=== PATIENT | male | born 1970 | race Caucasian/White ===

== ENCOUNTER → 2017-05-16 | Outpatient (CLI) | payer OTHER ==
[~2017-05-16] MED LIST: None per pt
[2017-05-16 16:27] LABS: HEMATOCRIT 48.4 % (39.2-51.8); HEMOGLOBIN 16.5 g/dL (13.7-18.0); WHITE BLOOD COUNT 7.6 x10^3/uL (3.4-10)
[2017-05-16 16:42] LABS: BLOOD UREA NITROGEN 18 mg/dL (7-18)
[2017-05-16 16:45] LABS: ASPARTATE AMINO TRANSFERASE 31 U/L (15-37)
== END | disposition home or self-care (01) ==
LOC: STAR 15:11 → MERGE 16:00
PROVIDERS: ATTEND Orthopaedic Surgery Orthopaedic Surgery of the Spine
DX: Z01.818 Encounter for other preprocedural examination (principal); M43.16 Spondylolisthesis, lumbar region; R79.1 Abnormal coagulation profile
CPT/HCPCS: 36415; 71020; 80053; 81003; 85025; 85610; 85730; 93005

== ENCOUNTER 2017-05-22 05:36 | Inpatient (IN) | payer OTHER ==
[~2017-05-22] VITALS: Ht 162.6 cm; Wt 100.0 kg
[2017-05-22] MEDS ORDERED: LACTATED RINGERS 1,000 ML IV SCH (06:13)
[2017-05-22 06:14] VITALS: BP 135/99
[2017-05-22] MEDS ORDERED: BUPIVACAINE/PF 0.25% ONE (06:55)
[2017-05-22] MEDS ORDERED: LIDOCAINE/PF 0.5% ,50ML ONE (06:55)
[2017-05-22] MEDS ORDERED: EPINEPHRINE 1 MG/ML, 1ML ONE (06:56)
[2017-05-22] MEDS ORDERED: THROMBIN 5,000 UNIT VIAL TP ONE ×3 (06:56→08:31)
[2017-05-22] MEDS ORDERED: VANCOMYCIN 1,000 MG ONE (06:56)
[2017-05-22] MEDS ORDERED: FENTANYL PF 250 MCG/5ML ONE (06:59)
[2017-05-22] MEDS ORDERED: MIDAZOLAM 1 MG/ML, 2ML ONE (06:59)
[2017-05-22] MEDS ORDERED: LIDOCAINE 0.5%-EPI 1:200K, 50ML INFIL ONE (08:42)
[2017-05-22] MEDS ORDERED: VANCOMYCIN 1,000 MG IM ONE ×2 (08:43→08:44)
[2017-05-22] MEDS ORDERED: BUPIVACAINE/PF-EPI 0.25% 1:200K INFIL ONE (08:43)
[2017-05-22] MEDS ORDERED: ROCURONIUM 10 MG/ML,10ML ONE (10:57)
[2017-05-22] MEDS ORDERED: GLYCOPYRROLATE 0.2MG/1ML, 5ML ONE (10:57)
[2017-05-22] MEDS ORDERED: PROPOFOL 10 MG/ML, 20ML ONE (10:57)
[2017-05-22] MEDS ORDERED: ONDANSETRON 2MG/ML, 2ML ONE ×2 (10:57→12:49)
[2017-05-22] MEDS ORDERED: CEFAZOLIN 1,000 MG ONE (10:57)
[2017-05-22] MEDS ORDERED: DEXAMETHASONE 4 MG/ML, 1ML ONE (10:57)
[2017-05-22] MEDS ORDERED: NEOSTIGMINE 1 MG/ML, 10ML ONE (10:57)
[2017-05-22] MEDS ORDERED: SUCCINYLCHOLINE 20 MG/ML, 10ML ONE (10:57)
[2017-05-22] MEDS ORDERED: LORazepam 2 MG/ML, 1ML IVPush PRN (11:30)
[2017-05-22] MEDS ORDERED: PROMETHAZINE 25 MG/ML, 1ML IV PRN (11:30)
[2017-05-22] MEDS ORDERED: MEPERIDINE/PF 25MG/0.5ML IVPush PRN (11:30)
[2017-05-22] MEDS ORDERED: HYDROmorphone 1 MG/ML, 1ML IV PRN (11:30)
[2017-05-22] MEDS ORDERED: FENTANYL PF 100 MCG/2ML IV PRN (11:30)
[2017-05-22] MEDS ORDERED: hydrALAzine 20 MG/ML, 1ML IV PRN (11:30)
[2017-05-22] MEDS ORDERED: METOPROLOL 1 MG/ML, 5ML IV PRN (11:30)
[2017-05-22] MEDS ORDERED: ALBUTEROL SULFATE 2.5 MG/3 ML NPPB PRN (11:30)
[2017-05-22] MEDS ORDERED: OXYcodone 5 MG/5 ML ORAL.SOL UDC PO PRN (11:30)
[2017-05-22] MEDS ORDERED: ACETAMINOPHEN 325 MG TABLET PO PRN (11:30)
[2017-05-22] MEDS ORDERED: ACETAMINOPHEN 650 MG/20.3 ML UDC ONE (12:05)
[2017-05-22] MEDS ORDERED: OXYcodone 5 MG/5 ML ORAL.SOL UDC ONE (12:05)
[2017-05-22] MEDS ORDERED: FENTANYL PF 100 MCG/2ML ONE (12:15)
[2017-05-22] MEDS ORDERED: ONDANSETRON 2MG/ML, 2ML IVPush PRN (13:00)
[2017-05-22 14:15] VITALS: BP 117/73
[2017-05-22] MEDS ORDERED: morphine SULFATE 10 MG/ML, 1ML IV PRN (15:00)
[2017-05-22] MEDS ORDERED: HYDROcodone/APAP 10/325 MG TABLET PO PRN (15:00)
[2017-05-22] MEDS ORDERED: ONDANSETRON 2MG/ML, 2ML IV PRN (15:00)
[2017-05-22] MEDS ORDERED: PROMETHAZINE 25 MG/ML, 1ML IM PRN (15:00)
[2017-05-22] MEDS ORDERED: DIAZEPAM 5 MG/ML, 2ML IV PRN (15:00)
[2017-05-22] MEDS ORDERED: METHOCARBAMOL 1,000 MG in DEXTROSE 5% 100 ML IV ONE (15:00)
[2017-05-22] MEDS ORDERED: MAGNESIUM HYDROXIDE 8%, 30ML UDC PO PRN (15:00)
[2017-05-22] MEDS ORDERED: DIPHENHYDRAMINE 50 MG/ML, 1ML IVPush PRN (15:00)
[2017-05-22] MEDS ORDERED: DIAZEPAM 5 MG TABLET PO PRN (15:00)
[2017-05-22] MEDS ORDERED: BISACODYL 10 MG SUPP PR PRN (15:00)
[2017-05-22] MEDS ORDERED: LABETALOL 5MG/ML, 20ML IV PRN (15:00)
[2017-05-22] MEDS ORDERED: HYDROcodone/APAP 5/325 TABLET PO PRN (15:00)
[2017-05-22] MEDS: CEFAZOLIN PMX 2GM/50ML 50 ML IVPB SCH (17:08)
[2017-05-22] MEDS: D5%-0.9% NACL+KCL 20MEQ 1,000 ML IV SCH (17:08)
[2017-05-22 20:10] VITALS: BP 131/81
[2017-05-22] MEDS: METHOCARBAMOL 750 MG in DEXTROSE 5% 100 ML IV SCH (23:44)
[2017-05-23 00:35] VITALS: BP 108/54
[2017-05-23] MEDS: CEFAZOLIN PMX 2GM/50ML 50 ML IVPB SCH ×3 (00:41→17:59)
[2017-05-23] MEDS: D5%-0.9% NACL+KCL 20MEQ 1,000 ML IV SCH (01:00)
[2017-05-23 03:14] VITALS: BP 112/59
[2017-05-23 05:39] LABS: HEMATOCRIT 40.4 % (39.2-51.8); HEMOGLOBIN 13.8 g/dL (13.7-18.0); WHITE BLOOD COUNT 10.7 x10^3/uL (3.4-10)
[2017-05-23 05:49] LABS: BLOOD UREA NITROGEN 16 mg/dL (7-18)
[2017-05-23] MEDS: METHOCARBAMOL 750 MG in DEXTROSE 5% 100 ML IV SCH (07:40)
[2017-05-23 07:44] VITALS: BP 129/83
[2017-05-23] MEDS: SENNA/DOCUSATE TABLET PO SCH (09:41)
[2017-05-23] MEDS ORDERED: ACETAMINOPHEN 500 MG TABLET PO SCH (11:00)
[2017-05-23] MEDS: OXYcodone IR 5MG TABLET PO PRN ×3 (11:38→22:14)
[2017-05-23] MEDS: ACETAMINOPHEN 500 MG TABLET PO SCH ×2 (13:42→21:11)
[2017-05-23] MEDS: METHOCARBAMOL 750 MG TABLET PO SCH ×2 (13:42→21:11)
[2017-05-23 15:38] VITALS: BP 116/74
[2017-05-23 18:31] VITALS: BP 123/75
[2017-05-24] MEDS: CEFAZOLIN PMX 2GM/50ML 50 ML IVPB SCH ×2 (02:03→09:08)
[2017-05-24] MEDS: METHOCARBAMOL 750 MG TABLET PO SCH ×3 (02:03→14:00)
[2017-05-24] MEDS: ACETAMINOPHEN 500 MG TABLET PO SCH ×3 (02:03→14:00)
[2017-05-24 02:49] VITALS: BP 111/72
[2017-05-24] MEDS: OXYcodone IR 5MG TABLET PO PRN ×2 (05:17→09:15)
[2017-05-24 05:40] LABS: HEMATOCRIT 41.2 % (39.2-51.8); HEMOGLOBIN 14.1 g/dL (13.7-18.0); WHITE BLOOD COUNT 8.8 x10^3/uL (3.4-10)
[2017-05-24 05:49] LABS: BLOOD UREA NITROGEN 14 mg/dL (7-18)
[2017-05-24] MEDS ORDERED: MAGNESIUM HYDROXIDE 8%, 30ML UDC PO SCH (09:00)
[2017-05-24] MEDS: SENNA/DOCUSATE TABLET PO SCH (09:08)
[2017-05-24 09:18] VITALS: BP 114/70
[2017-05-24] MEDS ORDERED: KETOROLAC 30 MG/1 ML IV ONE (11:45)
[2017-05-24 14:40] VITALS: BP 132/77
[2017-05-24] MEDS ORDERED: CEPH-368 PO (15:20)
[2017-05-24] MEDS ORDERED: OXYC-302 PO (15:21)
[2017-05-24] MEDS ORDERED: METH750T87 PO (15:22)
== END 2017-05-24 15:35 | disposition home or self-care (01) | DRG 460 ==
LOC: ORIP 05:36 → 4NOR 13:45 → DCLOUNGE 05-24 15:17
PROVIDERS: ADMIT Orthopaedic Surgery Orthopaedic Surgery of the Spine; ATTEND Orthopaedic Surgery Orthopaedic Surgery of the Spine
PROC: 0SG30AJ Fusion of Lumbosacral Joint with Interbody Fusion Device, Posterior Approach, Anterior Column, Open Approach (ICD-10-PCS; principal; 2017-05-22 07:30)
DX: M43.17 Spondylolisthesis, lumbosacral region (principal); M54.17 Radiculopathy, lumbosacral region; Z90.49 Acquired absence of other specified parts of digestive tract
CPT/HCPCS: 36415; 72100; 80048; 85025; C1713; C1776; J0171; J0690; J1100; J1885; J2001; J2250; J2270; J2405; J2704; J2710; J3010; J3370; J3490; C1762; J0330; J2800; J3480; J7120